=== PATIENT | male | born 1985 | race Caucasian/White ===

== ENCOUNTER 2017-01-20 18:09 | Emergency (ER) | payer MEDICAID | END 2017-01-21 00:05 | disposition home or self-care (01) | LOC: D.ER 18:09 | DX: S99.911D Unspecified injury of right ankle, subsequent encounter (principal); X58.XXXD Exposure to other specified factors, subsequent encounter; Z48.01 Encounter for change or removal of surgical wound dressing; F17.200 Nicotine dependence, unspecified, uncomplicated ==